=== PATIENT | male | born 1970 | race Caucasian/White ===

== ENCOUNTER 2022-12-13 20:19 | Emergency (ER) | payer MEDICAID, OTHER ==
[~2022-12-13] VITALS: Ht 188 cm; Wt 110.2 kg
[2022-12-13 20:25] VITALS: BP 164/89
--- NOTE | 2022-12-13 22:22 | NUR ---
PT TAKEN TO BED 12
--- NOTE | 2022-12-13 23:02 | NUR ---
Dr. Villalta examining patient.
[2022-12-13] MEDS ORDERED: KETOROLAC 30 MG/ML VIAL IVP ONE (23:05)
--- NOTE | 2022-12-13 23:28 | NUR ---
X-Ray at bedside.
[2022-12-13 23:32] LABS: BASOPHILS # (AUTO) 0.1 K/uL (0.00-0.22); BASOPHILS % (AUTO) 1.1 % (0.0-2.0); EOSINOPHILS # (AUTO) 0.2 K/uL (0-0.4); HEMOGLOBIN 12.5 g/dL (12.0-18.0); LYMPHOCYTES # (AUTO) 1.6 K/uL (2.0-11.5); LYMPHOCYTES % (AUTO) 19.6 % (20.5-51.1); MEAN CORPUSCULAR HEMOGLOBIN 29 pg (27-31); MEAN CORPUSCULAR HGB CONC 33 g/dL (33-37); MEAN CORPUSCULAR VOLUME 89.4 fL (80-94); MONOCYTES # (AUTO) 1.2 K/uL (0.8-1.0); MONOCYTES % (AUTO) 14.8 % (1.7-9.3); NEUTROPHILS # (AUTO) 5.1 K/uL (1.8-7.7); NEUTROPHILS % (AUTO) 62.5 % (42.2-75.2); PLATELET COUNT (AUTO) 248 K/uL (140-450); RED BLOOD CELL COUNT(AUTO) 4.26 MIL/uL (4.20-6.10); RED CELL DISTRIBUTION WIDTH 13.8 % (11.6-13.7); WHITE BLOOD COUNT (AUTO) 8.1 K/uL (4.8-10.8)
[2022-12-13 23:44] LABS: ANION GAP 8.9 (8-16); CARBON DIOXIDE 33.3 mmol/L (21-32); CREATININE 0.7 mg/dL (0.6-1.3); POTASSIUM 4.2 mmol/L (3.5-5.1)
[2022-12-13 23:56] VITALS: BP 165/88
[2022-12-13] MEDS ORDERED: ceFAZolin 1,000 MG VIAL ONE (23:59)
[2022-12-14] MEDS ORDERED: CEPH-588 PO (00:32)
[2022-12-14] MEDS ORDERED: NAPR-54 PO (00:32)
--- NOTE | 2022-12-14 00:45 | NUR ---
Patient discharged with v/s stable. Written and verbal after care instructions given and explained. Patient alert, oriented and verbalized understanding of instructions. Ambulatory with steady gait. All questions addressed prior to discharge. ID band removed. Patient advised to follow up with PMD. Rx of KEFLEX AND NAPROSYN given. Patient educated on indication of medication including possible reaction and side effects. Opportunity to ask questions provided and answered.
== END 2022-12-14 00:45 | disposition home or self-care (01) ==
LOC: MED 20:19
DX: L03.115 Cellulitis of right lower limb (principal); R60.0 Localized edema; I10 Essential (primary) hypertension; Z79.1 Long term (current) use of non-steroidal anti-inflammatories (NSAID); Z79.2 Long term (current) use of antibiotics
CPT/HCPCS: 36415; 73590; 80048; 83605; 85025; 87040; 96365; 96375; 99284; J0690; J1885

== ENCOUNTER 2023-11-14 18:31 | Inpatient (IN) | payer MEDICAID ==
[~2023-11-14] VITALS: Ht 188 cm; Wt 112.5 kg
[~2023-11-14 18:31] MED LIST: CEPH-588 PO; NAPR-337 PO
[2023-11-14 18:42] VITALS: BP 162/98; PULSE 103; RESP 15; TEMP 97.5; O2SAT 99
[2023-11-14 19:02] LABS: BASOPHILS # (AUTO) 0.1 K/uL (0.00-0.22); BASOPHILS % (AUTO) 2.2 % (0.0-2.0); EOSINOPHILS # (AUTO) 0.2 K/uL (0-0.4); EOSINOPHILS % (AUTO) 3.3 % (0.0-4.0); HEMOGLOBIN 14.4 g/dL (12.0-18.0); LYMPHOCYTES # (AUTO) 2.9 K/uL (2.0-11.5); LYMPHOCYTES % (AUTO) 43.5 % (20.5-51.1); MEAN CORPUSCULAR HEMOGLOBIN 28 pg (27-31); MEAN CORPUSCULAR HGB CONC 34 g/dL (33-37); MONOCYTES # (AUTO) 0.6 K/uL (0.8-1.0); MONOCYTES % (AUTO) 8.8 % (1.7-9.3); NEUTROPHILS # (AUTO) 2.8 K/uL (1.8-7.7); NEUTROPHILS % (AUTO) 42.2 % (42.2-75.2); PLATELET COUNT (AUTO) 302 K/uL (140-450); RED BLOOD CELL COUNT(AUTO) 5.12 MIL/uL (4.20-6.10); RED CELL DISTRIBUTION WIDTH 14.1 % (11.6-13.7); WHITE BLOOD COUNT (AUTO) 6.6 K/uL (4.8-10.8)
[2023-11-14 19:18] LABS: ANION GAP 11.1 (8-16); CALCIUM 8.4 mg/dL (8.5-10.1); CARBON DIOXIDE 30.8 mmol/L (21-32); CREATININE 0.6 mg/dL (0.6-1.3); POTASSIUM 3.9 mmol/L (3.5-5.1)
[2023-11-14 19:21] LABS: INR 1.05 (0.8-1.2); PARTIAL THROMBOPLASTIN TIME 26.1 secs (22-35.6)
[2023-11-14 19:26] LABS: ALCOHOL, BLOOD 345 mg/dL (<10)
[2023-11-14 19:31] LABS: CHOL/HDL RATIO 1.7 (1-4.5); MAGNESIUM 1.8 mg/dL (1.8-2.4)
[2023-11-14] MEDS ORDERED: MULTIVITAMIN-12 10 ML VIAL IV ONE (20:11)
[2023-11-14] MEDS: THIAMINE 200 MG/2 ML VIAL IM ONE (20:53)
[2023-11-14] MEDS: FOLIC ACID 5 MG/ML SYR IM ONE (20:53)
[2023-11-14] MEDS: MULTIVITAMIN-12 10 ML in NACL 0.9% 1,000 ML IV ONE (21:02)
[2023-11-14] MEDS: MAG SULF 2000 MG/WATER PREMIX 50 ML IV ONE (21:10)
[2023-11-14] MEDS ORDERED: MORPHINE SULFATE 2 MG/ML SYR IVP PRN (21:15)
[2023-11-14] MEDS ORDERED: POLYETHYLENE GLYCOL 17 GM/PKT PO PRN (21:15)
[2023-11-14] MEDS ORDERED: MELATONIN 3 MG TAB PO PRN (21:15)
[2023-11-14] MEDS ORDERED: ACETAMINOPHEN 325 MG TAB PO PRN (21:15)
[2023-11-14] MEDS ORDERED: LORazepam 2 MG/ML VIAL IVP PRN (21:15)
[2023-11-14] MEDS ORDERED: ONDANSETRON 4 MG/2 ML VIAL IVP PRN (21:15)
[2023-11-14 21:54] LABS: CHOL/HDL RATIO 1.7 (1-4.5)
[2023-11-14 22:12] LABS: FREE T4 (FREE THYROXINE) 0.88 ng/dL (0.76-1.46); THYROID STIMULATING HORMONE 2.3 uIU/mL (0.34-3.74)
[2023-11-14 23:25] VITALS: BP 148/82; PULSE 76; PULSE 78; RESP 18; TEMP 98.3; O2SAT 97
[2023-11-14 23:39] VITALS: PULSE 100
[2023-11-15] VITALS (9 sets, daily range): BP systolic 135–179; BP diastolic 60–105; PULSE 86–116; RESP 16–18; TEMP 96–98.5; O2SAT 94–98
[2023-11-15] MEDS: NACL 0.9% 1,000 ML IV SCH (01:58)
[2023-11-15 02:22] LABS: APPEARANCE,URINE CLEAR (CLEAR); BILIRUBIN,URINE NEGATIVE (NEGATIVE); BLOOD, URINE NEGATIVE (NEGATIVE); COLOR,URINE YELLOW (YELLOW); LEUKOCYTE ESTERASE ,URINE NEGATIVE (NEGATIVE); NITRITE, URINE NEGATIVE (NEGATIVE); PROTEIN,URINE 1+ (NEGATIVE); UGLUCOSE NEGATIVE (NEGATIVE); UROBILINOGEN,URINE 0.2 EU/dL (0.2 - 1)
[2023-11-15 02:33] LABS: AMPHETAMINE, URINE POSITIVE ng/ml (NEG <=1000); BARBITURATE, URINE NEGATIVE ng/ml (NEG <=200); BENZODIAZEPINE, URINE NEGATIVE ng/mL (NEG <=200); CANNABINOID, URINE NEGATIVE ng/mL (NEG <=50); COCAINE, URINE NEGATIVE ng/mL (NEG <=300); OPIATE, URINE NEGATIVE ng/mL (NEG <=2000); PHENCYCLIDINE SCREEN,URINE NEGATIVE ng/mL (NEG <=25)
[2023-11-15 06:39] LABS: BASOPHILS # (AUTO) 0.2 K/uL (0.00-0.22); BASOPHILS % (AUTO) 2.9 % (0.0-2.0); EOSINOPHILS # (AUTO) 0.2 K/uL (0-0.4); EOSINOPHILS % (AUTO) 3.5 % (0.0-4.0); HEMATOCRIT 40.4 % (36-52); HEMOGLOBIN 13.4 g/dL (12.0-18.0); LYMPHOCYTES # (AUTO) 1.7 K/uL (2.0-11.5); LYMPHOCYTES % (AUTO) 25.8 % (20.5-51.1); MEAN CORPUSCULAR HEMOGLOBIN 28 pg (27-31); MEAN CORPUSCULAR HGB CONC 33 g/dL (33-37); MEAN CORPUSCULAR VOLUME 84.3 fL (80-94); MONOCYTES # (AUTO) 0.7 K/uL (0.8-1.0); MONOCYTES % (AUTO) 10.3 % (1.7-9.3); NEUTROPHILS # (AUTO) 3.7 K/uL (1.8-7.7); NEUTROPHILS % (AUTO) 57.5 % (42.2-75.2); PLATELET COUNT (AUTO) 253 K/uL (140-450); RED BLOOD CELL COUNT(AUTO) 4.79 MIL/uL (4.20-6.10); RED CELL DISTRIBUTION WIDTH 13.8 % (11.6-13.7); WHITE BLOOD COUNT (AUTO) 6.5 K/uL (4.8-10.8)
[2023-11-15 06:51] LABS: ALBUMIN 2.9 g/dL (3.4-5.0); CALCIUM 8.3 mg/dL (8.5-10.1); CARBON DIOXIDE 26.8 mmol/L (21-32); CREATININE 0.5 mg/dL (0.6-1.3); MAGNESIUM 1.7 mg/dL (1.8-2.4); PHOSPHORUS 3.7 mg/dL (2.5-4.9); POTASSIUM 3.8 mmol/L (3.5-5.1); TOTAL BILIRUBIN 0.4 mg/dL (0.0-1.0); TOTAL PROTEIN, SERUM 9.1 g/dL (6.4-8.2)
[2023-11-15] MEDS: LORazepam 2 MG/ML VIAL IVP PRN (07:07)
[2023-11-15] MEDS: THIAMINE 200 MG/2 ML VIAL IM SCH (08:51)
[2023-11-15] MEDS: ECOTRIN 81 MG TABEC PO SCH (08:52)
[2023-11-15] MEDS: CLOPIDOGREL 75 MG TAB PO SCH (08:53)
[2023-11-15] MEDS ORDERED: HEPARIN PER PHARMACY MC PRN (10:25)
[2023-11-15] MEDS: hePARIN / DEXT 5% PREMIX 250 ML IV SCH (14:29)
[2023-11-15] MEDS: ATORVASTATIN 20 MG TAB PO SCH (20:25)
[2023-11-15] MEDS: HYDROcodone/APAP 5/325 MG 1 TAB TAB PO PRN (20:28)
[2023-11-15] MEDS: LORazepam 2 MG/ML VIAL IVP SCH (20:31)
[2023-11-16] VITALS: BP 179/97; PULSE 88; PULSE 89; RESP 16; TEMP 95.4; O2SAT 97
[2023-11-16 03:55] LABS: BASOPHILS # (AUTO) 0.1 K/uL (0.00-0.22); BASOPHILS % (AUTO) 0.8 % (0.0-2.0); EOSINOPHILS # (AUTO) 0.1 K/uL (0-0.4); EOSINOPHILS % (AUTO) 1.4 % (0.0-4.0); HEMATOCRIT 39.6 % (36-52); HEMOGLOBIN 13.5 g/dL (12.0-18.0); LYMPHOCYTES # (AUTO) 1.6 K/uL (2.0-11.5); LYMPHOCYTES % (AUTO) 17.5 % (20.5-51.1); MEAN CORPUSCULAR HEMOGLOBIN 28 pg (27-31); MEAN CORPUSCULAR HGB CONC 34 g/dL (33-37); MEAN CORPUSCULAR VOLUME 83.1 fL (80-94); MONOCYTES # (AUTO) 1.2 K/uL (0.8-1.0); NEUTROPHILS # (AUTO) 6.1 K/uL (1.8-7.7); NEUTROPHILS % (AUTO) 67.3 % (42.2-75.2); PLATELET COUNT (AUTO) 239 K/uL (140-450); RED BLOOD CELL COUNT(AUTO) 4.76 MIL/uL (4.20-6.10); RED CELL DISTRIBUTION WIDTH 14.1 % (11.6-13.7); WHITE BLOOD COUNT (AUTO) 9.1 K/uL (4.8-10.8)
[2023-11-16 04:00] VITALS: BP 171/102; PULSE 82; PULSE 86; TEMP 96.6; O2SAT 97
[2023-11-16 04:43] LABS: ALBUMIN 2.8 g/dL (3.4-5.0); ANION GAP 13.2 (8-16); CALCIUM 8.8 mg/dL (8.5-10.1); CARBON DIOXIDE 26.5 mmol/L (21-32); CREATININE 0.6 mg/dL (0.6-1.3); MAGNESIUM 1.5 mg/dL (1.8-2.4); PHOSPHORUS 4.2 mg/dL (2.5-4.9); POTASSIUM 3.7 mmol/L (3.5-5.1); TOTAL PROTEIN, SERUM 9.2 g/dL (6.4-8.2)
[2023-11-16] MEDS: MAG SULF 2000 MG/WATER PREMIX 50 ML IV PRN (05:13)
[2023-11-16 08:00] VITALS: BP 174/99; PULSE 78; PULSE 86; RESP 20; TEMP 97.5; O2SAT 86
[2023-11-16] MEDS: LOSARTAN 25 MG TAB PO SCH (10:18)
[2023-11-16 12:00] VITALS: BP 160/94; PULSE 85; PULSE 91; RESP 18; TEMP 96.9; O2SAT 95
[2023-11-16 16:00] VITALS: BP 155/89; PULSE 115; PULSE 95; RESP 17; TEMP 97.5; O2SAT 95
[2023-11-16 20:00] VITALS: BP 169/93; PULSE 117; PULSE 118; PULSE 93; RESP 20; TEMP 99.4; O2SAT 95
[2023-11-16] MEDS: hydrALAZINE 20 MG/ML VIAL IVP PRN (23:57)
[2023-11-17] VITALS (9 sets, daily range): BP systolic 147–170; BP diastolic 85–98; PULSE 99–118; RESP 19–21; TEMP 97.8–98.8; O2SAT 95–99
[2023-11-17 07:08] LABS: ALBUMIN 2.5 g/dL (3.4-5.0); ANION GAP 12.4 (8-16); CARBON DIOXIDE 25.8 mmol/L (21-32); CREATININE 0.5 mg/dL (0.6-1.3); MAGNESIUM 1.6 mg/dL (1.8-2.4); PHOSPHORUS 3.7 mg/dL (2.5-4.9); POTASSIUM 3.2 mmol/L (3.5-5.1)
[2023-11-17 08:05] LABS: BASOPHILS # (AUTO) 0.1 K/uL (0.00-0.22); BASOPHILS % (AUTO) 0.7 % (0.0-2.0); EOSINOPHILS # (AUTO) 0.2 K/uL (0-0.4); EOSINOPHILS % (AUTO) 2.1 % (0.0-4.0); HEMATOCRIT 40.5 % (36-52); HEMOGLOBIN 13.8 g/dL (12.0-18.0); LYMPHOCYTES # (AUTO) 1.3 K/uL (2.0-11.5); LYMPHOCYTES % (AUTO) 14.7 % (20.5-51.1); MEAN CORPUSCULAR HEMOGLOBIN 28 pg (27-31); MEAN CORPUSCULAR HGB CONC 34 g/dL (33-37); MEAN CORPUSCULAR VOLUME 83.6 fL (80-94); MONOCYTES # (AUTO) 0.9 K/uL (0.8-1.0); MONOCYTES % (AUTO) 10.3 % (1.7-9.3); NEUTROPHILS # (AUTO) 6.3 K/uL (1.8-7.7); NEUTROPHILS % (AUTO) 72.2 % (42.2-75.2); PLATELET COUNT (AUTO) 227 K/uL (140-450); RED BLOOD CELL COUNT(AUTO) 4.85 MIL/uL (4.20-6.10); WHITE BLOOD COUNT (AUTO) 8.6 K/uL (4.8-10.8)
[2023-11-17] MEDS: ENOXAPARIN 40 MG/0.4 ML SYR SUBQ SCH (08:32)
[2023-11-17] MEDS: KCL 20 MEQ IN 100 mL PREMIX 200 ML IV PRN (09:13)
[2023-11-17] MEDS ORDERED: LORazepam 2 MG/ML VIAL IVP PRN (10:00)
[2023-11-17] MEDS ORDERED: ATEN25TA7 PO (12:38)
[2023-11-17] MEDS: LOSARTAN 25 MG TAB PO SCH (20:43)
[2023-11-18] VITALS (10 sets, daily range): BP systolic 128–154; BP diastolic 75–96; PULSE 78–116; RESP 18–21; TEMP 97.7–98.9; O2SAT 96–99
[2023-11-18 07:00] LABS: BASOPHILS # (AUTO) 0.1 K/uL (0.00-0.22); BASOPHILS % (AUTO) 0.5 % (0.0-2.0); EOSINOPHILS # (AUTO) 0.1 K/uL (0-0.4); EOSINOPHILS % (AUTO) 1.4 % (0.0-4.0); HEMATOCRIT 39.1 % (36-52); HEMOGLOBIN 13.4 g/dL (12.0-18.0); LYMPHOCYTES # (AUTO) 1.7 K/uL (2.0-11.5); LYMPHOCYTES % (AUTO) 17.8 % (20.5-51.1); MEAN CORPUSCULAR HEMOGLOBIN 29 pg (27-31); MEAN CORPUSCULAR HGB CONC 34 g/dL (33-37); MEAN CORPUSCULAR VOLUME 83.6 fL (80-94); MONOCYTES # (AUTO) 1.3 K/uL (0.8-1.0); MONOCYTES % (AUTO) 13.8 % (1.7-9.3); NEUTROPHILS # (AUTO) 6.4 K/uL (1.8-7.7); NEUTROPHILS % (AUTO) 66.5 % (42.2-75.2); PLATELET COUNT (AUTO) 249 K/uL (140-450); RED BLOOD CELL COUNT(AUTO) 4.67 MIL/uL (4.20-6.10); RED CELL DISTRIBUTION WIDTH 14.3 % (11.6-13.7); WHITE BLOOD COUNT (AUTO) 9.6 K/uL (4.8-10.8)
[2023-11-18 08:22] LABS: ANION GAP 11.9 (8-16); CALCIUM 8.1 mg/dL (8.5-10.1); CARBON DIOXIDE 25.7 mmol/L (21-32); CREATININE 0.5 mg/dL (0.6-1.3); MAGNESIUM 1.7 mg/dL (1.8-2.4); PHOSPHORUS 4.1 mg/dL (2.5-4.9); POTASSIUM 3.6 mmol/L (3.5-5.1); TOTAL PROTEIN, SERUM 8.5 g/dL (6.4-8.2)
[2023-11-18] MEDS: atenoloL 25 MG TAB PO SCH (08:24)
[2023-11-18 08:59] LABS: ALBUMIN 2.3 g/dL (3.4-5.0)
[2023-11-18] MEDS: ZOLPIDEM 5 MG TAB PO SCH (23:03)
[2023-11-19] VITALS: BP 159/98; PULSE 100; PULSE 103; RESP 18; TEMP 98.6; O2SAT 97
[2023-11-19 04:00] VITALS: BP 147/86; PULSE 85; PULSE 92; RESP 18; TEMP 97.6; O2SAT 95
[2023-11-19 07:15] LABS: BASOPHILS # (AUTO) 0.1 K/uL (0.00-0.22); BASOPHILS % (AUTO) 0.7 % (0.0-2.0); EOSINOPHILS # (AUTO) 0.2 K/uL (0-0.4); EOSINOPHILS % (AUTO) 1.8 % (0.0-4.0); HEMATOCRIT 38.8 % (36-52); HEMOGLOBIN 13.3 g/dL (12.0-18.0); MEAN CORPUSCULAR HEMOGLOBIN 29 pg (27-31); MEAN CORPUSCULAR HGB CONC 34 g/dL (33-37); MEAN CORPUSCULAR VOLUME 83.8 fL (80-94); MONOCYTES % (AUTO) 10.8 % (1.7-9.3); NEUTROPHILS # (AUTO) 6.4 K/uL (1.8-7.7); NEUTROPHILS % (AUTO) 65.7 % (42.2-75.2); PLATELET COUNT (AUTO) 311 K/uL (140-450); RED BLOOD CELL COUNT(AUTO) 4.63 MIL/uL (4.20-6.10); RED CELL DISTRIBUTION WIDTH 14.3 % (11.6-13.7); WHITE BLOOD COUNT (AUTO) 9.7 K/uL (4.8-10.8)
[2023-11-19 07:50] LABS: ALBUMIN 2.5 g/dL (3.4-5.0); ANION GAP 11.3 (8-16); CALCIUM 8.8 mg/dL (8.5-10.1); CARBON DIOXIDE 25.4 mmol/L (21-32); CREATININE 0.5 mg/dL (0.6-1.3); MAGNESIUM 1.2 mg/dL (1.8-2.4); POTASSIUM 3.7 mmol/L (3.5-5.1); TOTAL PROTEIN, SERUM 8.8 g/dL (6.4-8.2)
[2023-11-19 08:00] VITALS: BP 144/93; PULSE 87; PULSE 92; RESP 18; RESP 20; TEMP 98.3; O2SAT 98
[2023-11-19] MEDS: THIAMINE 100 MG TAB PO SCH (08:51)
[2023-11-19 12:00] VITALS: BP 128/73; PULSE 65; PULSE 68; RESP 20; TEMP 98.2; O2SAT 98
[2023-11-19] MEDS: COLCHICINE 0.6 MG TAB PO SCH (13:01)
[2023-11-19 16:00] VITALS: BP 144/85; PULSE 75; PULSE 82; RESP 20; TEMP 97; O2SAT 98
[2023-11-19 20:00] VITALS: BP 144/78; PULSE 87; PULSE 99; RESP 18; TEMP 98.2; O2SAT 97
[2023-11-20] VITALS: BP 135/81; PULSE 101; PULSE 84; RESP 18; TEMP 98.8; O2SAT 100
[2023-11-20 04:00] VITALS: BP 149/86; PULSE 87; PULSE 89; RESP 18; TEMP 97.8; O2SAT 96
[2023-11-20 07:12] LABS: BASOPHILS # (AUTO) 0.1 K/uL (0.00-0.22); BASOPHILS % (AUTO) 0.9 % (0.0-2.0); EOSINOPHILS # (AUTO) 0.2 K/uL (0-0.4); EOSINOPHILS % (AUTO) 1.9 % (0.0-4.0); HEMATOCRIT 37.2 % (36-52); HEMOGLOBIN 12.5 g/dL (12.0-18.0); LYMPHOCYTES # (AUTO) 1.9 K/uL (2.0-11.5); LYMPHOCYTES % (AUTO) 21.6 % (20.5-51.1); MEAN CORPUSCULAR HEMOGLOBIN 28 pg (27-31); MEAN CORPUSCULAR HGB CONC 34 g/dL (33-37); MEAN CORPUSCULAR VOLUME 83.9 fL (80-94); MONOCYTES # (AUTO) 1.3 K/uL (0.8-1.0); NEUTROPHILS # (AUTO) 5.5 K/uL (1.8-7.7); NEUTROPHILS % (AUTO) 60.6 % (42.2-75.2); PLATELET COUNT (AUTO) 343 K/uL (140-450); RED BLOOD CELL COUNT(AUTO) 4.43 MIL/uL (4.20-6.10); RED CELL DISTRIBUTION WIDTH 14.4 % (11.6-13.7)
[2023-11-20 07:57] LABS: ALBUMIN 2.5 g/dL (3.4-5.0); ANION GAP 12.5 (8-16); CARBON DIOXIDE 24.3 mmol/L (21-32); CREATININE 0.6 mg/dL (0.6-1.3); MAGNESIUM 1.8 mg/dL (1.8-2.4); PHOSPHORUS 4.1 mg/dL (2.5-4.9); POTASSIUM 3.8 mmol/L (3.5-5.1); TOTAL BILIRUBIN 0.8 mg/dL (0.0-1.0); TOTAL PROTEIN, SERUM 8.8 g/dL (6.4-8.2)
[2023-11-20 08:00] VITALS: BP 151/89; PULSE 75; PULSE 93; RESP 18; TEMP 98.9; O2SAT 98
[2023-11-20] MEDS ORDERED: CLOP75TA55 PO (15:34)
[2023-11-20] MEDS ORDERED: ASPI-1856 PO (15:34)
[2023-11-20] MEDS ORDERED: ATOR20TA40 PO (15:34)
[2023-11-20] MEDS ORDERED: LOSA-269 PO (15:34)
== END 2023-11-20 18:36 | disposition home or self-care (01) | DRG 45 ==
LOC: MED 18:31 → MTU 21:19
PROVIDERS: ADMIT Family Medicine; ATTEND Family Medicine
DX: I63.9 Cerebral infarction, unspecified (principal); I21.4 Non-ST elevation (NSTEMI) myocardial infarction; E44.0 Moderate protein-calorie malnutrition; G81.94 Hemiplegia, unspecified affecting left nondominant side; Z95.2 Presence of prosthetic heart valve; F10.129 Alcohol abuse with intoxication, unspecified; F15.90 Other stimulant use, unspecified, uncomplicated; I10 Essential (primary) hypertension; I25.10 Atherosclerotic heart disease of native coronary artery without angina pectoris; M10.9 Gout, unspecified; Z79.899 Other long term (current) drug therapy; Z68.31 Body mass index [BMI] 31.0-31.9, adult
CPT/HCPCS: 36415; 70450; 71045; 73030; 73110; 80048; 80053; 80305; 81003; 82948; 83036; 83735; 84100; 84439; 84443; 84484; 84550; 85025; 85610; 85730; 86886; 86900; 86901; 87081; 92526; 93005; 96365; 96366; 96372; 97116; 97163-GP; 99285; A9153; G0482; J0360; J1644; J1650; J2060; J3411; J3475; J3480; J3490; Q9967